=== PATIENT | male | born 1945 | race Caucasian/White ===

== ENCOUNTER → 2021-10-09 15:01 | Outpatient (BNVA) | payer MEDICARE, BC, SELFPAY | PROVIDERS: PCP Internal Medicine Medical Oncology; Visit Provider Psychiatry & Neurology Neurology | DX: G20 Parkinson's disease (principal); G47.33 Obstructive sleep apnea (adult) (pediatric) | CPT/HCPCS: 99212 ==

== ENCOUNTER → 2022-01-08 14:58 | Outpatient (BNVA) | payer MEDICARE, BC, SELFPAY | PROVIDERS: PCP Internal Medicine Medical Oncology; Visit Provider Psychiatry & Neurology Neurology | DX: G20 Parkinson's disease (principal); G47.33 Obstructive sleep apnea (adult) (pediatric) | CPT/HCPCS: 99212 ==

== ENCOUNTER → 2022-07-09 13:08 | Outpatient (BNVA) | payer MEDICARE, BC, SELFPAY | PROVIDERS: PCP Internal Medicine Medical Oncology; Visit Provider Psychiatry & Neurology Neurology | DX: G20 Parkinson's disease (principal); E11.9 Type 2 diabetes mellitus without complications; I10 Essential (primary) hypertension; Z79.4 Long term (current) use of insulin | CPT/HCPCS: 99212 ==

== ENCOUNTER 2023-01-09 13:35 | Outpatient (AMB) | payer MEDICARE, BC, SELFPAY ==
--- NOTE | 2023-01-09 13:43 | MHC.OFFVIS ---
Intake Vital Signs 01/09/23 13:56 Height 5 ft 7 in Weight 217 lb BMI 34.0 BP 128/68 Blood Pressure Location Lt brachial Position Sitting Respiration 16 Pulse 62 Pulse Source Pulse Oximeter Pulse Oximetry (%) 95 Oxygen Delivery Method Room Air Intake Visit Reasons: 6m follow up Parkinson/Confirmed Intake Note: Pt presents to office for 6 month evaluation of Parkinson's disease. He reports his symptoms have been stable since his last office visit. Occasional difficulty sleeping. He also reports some mild tremors of the right arm, but doing well overall. Allergies apple Allergy (Unknown, Verified 01/09/23 13:45) Unknown peach Allergy (Unknown, Verified 01/09/23 13:45) Unknown HPI HPI Comments History of Present Illness Details 77-yr-old male comes in for follow-up, accompanied by . ??? Parkinson's overall stable- some days are slower than others. ??? Ind with ADLs, still slow. Some difficulty cutting his food. ??? No choking. He has occasional tremors in his right hand . ??? Endorses some stiffness, especially in the morning. Legs can feel stiff and heavy. His chronic back pain is a bit better- using warm packs which is helping. ??? No orthostatic lightheadedness- may have brief mild off-balance sensation. ??? Constipation better- tries to eat fruit, vegetables, water. ??? Sleeping ok- some naps. Some daytime tiredness. ??? Mood stable. ??? No falls. ??? [facility] Medical History (Updated 01/09/23 @ 14:18 by Daniella Guerrero MD) Parkinson's disease without dyskinesia History of heart attack CVA (cerebral vascular accident) Back pain Sciatica Diabetes HTN (hypertension) Surgical History No pertinent past surgical history Family History Mother No problems noted. Father No problems noted. Social History Alcohol intake: current Alcohol intake frequency: a few times a week Patient Tobacco Use Status: Former Tobacco user Quit Date: 1991 Physical Exam Vital Signs: Last Vital Signs Pulse 62 01/09/23 13:56 Resp 16 01/09/23 13:56 BP 128/68 01/09/23 13:56 Pulse Ox 95 01/09/23 13:56 Oxygen Delivery Method Room Air 01/09/23 13:56 BMI result Body Mass Index 34.0 Neuro Other: UPDRS - 3 Speech 0-normal 1-Slight loss of expression,diction or volume 2.Monotone,slurred but understandable,moderately impaired 3.Marked impairment,difficult to understand 4.Unintelligible Facial expression 0-normal 1-Minimal hypomimia, poker face 2-Slight but definite abnormal diminution of facial expression 3-Moderate hypomimia,lips parted some of the time 4-Masked or fixed facies withs evere loss of facialexpression, lips parted more than 1/4 inch Rest Tremors( head, Upper, lower ) 0- absent 1-Slight and infrequent 2-Mild in amplitude and persistent 3-Moderate in amplitude and present most of the time 4-Marked amplitude and present most of the time Action and Postural tremors 0-none 1-Slight with action 2-Moderate with action 3-Moderate with posture and action 4-Marked , interferes with feeding Rigidity 0-Absent 1-Slight or detectable only when activated by mirror movements 2-Mild to Moderate 3-Marked, but full ROM achieved 4-Severe, range of motion achieved with difficulty Finger Taps 0-normal 1-Mild slowing an leesa reductionin amplitude 2-Moderately impaired. Early fatiguing and occasional arrests in movement 3-Severely impaired. Frequent hesitation in initiating movements or arrests in ongoing movement. 4-can barely perform the task Hand movements 0-normal 1-mild slowing and or reduction in amplitude 2-Moderately impaired.Definite and early fatiguing, may have occasional arrests in movement. 3-Severely impaired.Frequent hesitation in initiating or arrests in movement. 4-can barely perform the task Rapid Alternating Movements of Hands 0-normal 1-Mild slowing and or reduction in amplitude 2-Moderately impaired.Definite and early fatiguing. 2-Moderately impaired. Definite and early fatiguing. May have occasional arrests in movement. 3-severely impaired.Frequent hesitation in initiating movements or arrests in ongoing movement. 4-can barely perform the task Leg agility 0-normal 1-mild slowing and reduction in amplitude 2-moderately impaired.Definite and early fatiguing , may have occasional arrest in movement. 3-severely impaired.Frequent hesitation in initiating movements or arrests in ongoing movement. 4-can barely perform the task Arising from a chair 0-Normal 1-Slow or may need more than 1 attempt 2-Pushes self up from arms of seat 3-Tends to fall back and may have to try more than one time,but can get up without difficulty 4-Unable to stand without help Posture 0-normal 1-slightly stooped, could be normal for an older person 2-moderately stooped posture, definitely abnormal, can be leaning to one side 3-severely stooped posture with kyphosis, can be moderately leaning to one side 4-Marked flexion with extreme abnormal posture Gait 0-normal 1-walks slowly,may shuffle with short steps, but no festination or propulsion 2-walks with difficulty,but requires little or no assistance, may have short steps, festination or propulsion 3-severe, needs assistance 4-cannot walk even with assistance Postural stability 0-normal 1-retropulsion but recovers unaided 2-absence of postural response,will fail if not caught by the examiner 3-very unstable,tends to lose balance spontaneously 4-unable to stand without assistance Body bradykinesia and hypokinesia 0-none 1-minimal slowness,giving movement a deliberate character,could be normal for some persons.Possible reduced amplitude 2-Mild degree of slowness and poverty of movement or some reduced amplitude 3-moderate slowness,poverty or small amplitude of movement 4-marked slowness, poverty or small amplitude of movement. Assessment & Plan Assessment & Plan (1) Parkinson's disease without dyskinesia: Code(s): G20.A1 - Parkinson's disease without dyskinesia, without mention of fluctuations (2) Obstructive sleep apnea: Code(s): G47.33 - Obstructive sleep apnea (adult) (pediatric) Plan Continue sinemet 25/100 2 tabs qid Continue exercise . Declines CPAP. Coding Level of Care Code Est Pt Level 4 (54372) Diagnoses Parkinson's disease without dyskinesia G20.A1 Obstructive sleep apnea G47.33
[2023-01-09 13:56] VITALS: BP 128/68; PULSE 62; RESP 16; O2SAT 95; BMI 34.0
== END 2023-01-09 14:35 | disposition home or self-care (01) ==
PROVIDERS: Visit Provider Psychiatry & Neurology Neurology
DX: G20.A1 Parkinson's disease without dyskinesia, without mention of fluctuations (principal); G47.33 Obstructive sleep apnea (adult) (pediatric)
CPT/HCPCS: 99214

== ENCOUNTER → 2023-01-09 13:35 | Outpatient (BNVA) | payer MEDICARE, BC, SELFPAY | PROVIDERS: Visit Provider Psychiatry & Neurology Neurology | DX: G20.A1 Parkinson's disease without dyskinesia, without mention of fluctuations (principal); G47.33 Obstructive sleep apnea (adult) (pediatric) | CPT/HCPCS: 99212 ==

== ENCOUNTER 2023-06-11 11:25 | Outpatient (AMB) | payer MEDICARE, BC, SELFPAY ==
--- NOTE | 2023-06-11 11:30 | A.OFFVIS_ITS ---
Intake Vital Signs 06/11/23 11:32 Height 5 ft 7 in Weight 215 lb BMI 33.7 BP 128/74 Blood Pressure Location Rt brachial Position Sitting Respiration 17 Pulse 58 Pulse Source Pulse Oximeter Pulse Oximetry (%) 96 Oxygen Delivery Method Room Air Intake Visit Reasons: 5 mnts f/u appt LVM Intake Note: Pt presents for 6 month follow up for JOSELINE. Project Controls Specialist Required: No Allergies apple Allergy (Unknown, Verified 06/11/23 11:31) Unknown peach Allergy (Unknown, Verified 06/11/23 11:31) Unknown Medication List - Last Reconciled 06/11/23 by Daniella Guerrero MD aspirin 81 mg PO DAILY blood sugar diagnostic (FreeStyle Lite Strips) As directed carbidopa-levodopa 25-100 mg 2 tabs PO QID clopidogrel 75 mg PO DAILY fluticasone propionate 50 mcg/actuation sprays intranasal insulin aspart U-100 (Novolog FlexPen U-100 Insulin aspart) subcut insulin degludec (Tresiba FlexTouch U-100 insulin) units subcut isosorbide mononitrate ER 30 mg PO DAILY lisinopril 5 mg PO DAILY metoprolol succinate ER 25 mg PO DAILY pen needle, diabetic (BD Ultra-Fine Short Pen Needle) As directed spironolactone 12.5 mg PO DAILY torsemide 20 mg PO BID HPI HPI Comments History of Present Illness Details 77-yr-old male comes in for follow-up. ??? Parkinson's overall stable- some days are slower than others.He feels the medications make him very tired. He is not sure if it is his parkinsons meds or his diuretics. ??? Ind with ADLs, still slow. Some difficulty cutting his food.He is slower. His bedroom is upstairs, he walks up everyday holding on to the rails. He cooks somedays, makes breakfast ??? No choking. He has occasional tremors in his right hand . ??? Endorses some stiffness, especially in the morning. Legs can feel stiff and heavy. His chronic back pain is a bit better- using warm packs which is helping. ??? No orthostatic lightheadedness- may have brief mild off-balance sensation. ??? Constipation better- tries to eat fruit, vegetables, water. ??? Sleeping ok- some naps. Some daytime tiredness. ??? Mood stable. ??? No falls. ??? [facility] Medical History Parkinson's disease without dyskinesia History of heart attack CVA (cerebral vascular accident) Back pain Sciatica Diabetes HTN (hypertension) Surgical History No pertinent past surgical history Family History Mother No problems noted. Father No problems noted. Social History Alcohol intake: current Alcohol intake frequency: a few times a week Patient Tobacco Use Status: Former Tobacco user Quit Date: 1991 Physical Exam Vital Signs: Last Vital Signs Pulse 58 06/11/23 11:32 Resp 17 06/11/23 11:32 BP 128/74 06/11/23 11:32 Pulse Ox 96 06/11/23 11:32 Oxygen Delivery Method Room Air 06/11/23 11:32 BMI result Body Mass Index 33.7 Neuro Other: UPDRS - 3 Speech 0-normal 1-Slight loss of expression,diction or volume 2.Monotone,slurred but understandable,moderately impaired 3.Marked impairment,difficult to understand 4.Unintelligible Facial expression 0-normal 1-Minimal hypomimia, poker face 2-Slight but definite abnormal diminution of facial expression 3-Moderate hypomimia,lips parted some of the time 4-Masked or fixed facies withs evere loss of facialexpression, lips parted more than 1/4 inch Rest Tremors( head, Upper, lower ) 0- absent 1-Slight and infrequent 2-Mild in amplitude and persistent 3-Moderate in amplitude and present most of the time 4-Marked amplitude and present most of the time Action and Postural tremors 0-none 1-Slight with action 2-Moderate with action 3-Moderate with posture and action 4-Marked , interferes with feeding Rigidity 0-Absent 1-Slight or detectable only when activated by mirror movements 2-Mild to Moderate 3-Marked, but full ROM achieved- right UE 4-Severe, range of motion achieved with difficulty Finger Taps 0-normal 1-Mild slowing an leesa reductionin amplitude 2-Moderately impaired. Early fatiguing and occasional arrests in movement- Right UE 3-Severely impaired. Frequent hesitation in initiating movements or arrests in ongoing movement. 4-can barely perform the task Hand movements 0-normal 1-mild slowing and or reduction in amplitude 2-Moderately impaired.Definite and early fatiguing, may have occasional arrests in movement. 3-Severely impaired.Frequent hesitation in initiating or arrests in movement. 4-can barely perform the task Rapid Alternating Movements of Hands 0-normal 1-Mild slowing and or reduction in amplitude 2-Moderately impaired.Definite and early fatiguing. 2-Moderately impaired. Definite and early fatiguing. May have occasional arrests in movement. 3-severely impaired.Frequent hesitation in initiating movements or arrests in ongoing movement. 4-can barely perform the task Leg agility 0-normal 1-mild slowing and reduction in amplitude 2-moderately impaired.Definite and early fatiguing , may have occasional arrest in movement. 3-severely impaired.Frequent hesitation in initiating movements or arrests in ongoing movement. 4-can barely perform the task Arising from a chair 0-Normal 1-Slow or may need more than 1 attempt 2-Pushes self up from arms of seat 3-Tends to fall back and may have to try more than one time,but can get up without difficulty 4-Unable to stand without help Posture 0-normal 1-slightly stooped, could be normal for an older person 2-moderately stooped posture, definitely abnormal, can be leaning to one side 3-severely stooped posture with kyphosis, can be moderately leaning to one side 4-Marked flexion with extreme abnormal posture Gait 0-normal 1-walks slowly,may shuffle with short steps, but no festination or propulsion 2-walks with difficulty,but requires little or no assistance, may have short steps, festination or propulsion 3-severe, needs assistance 4-cannot walk even with assistance Postural stability 0-normal 1-retropulsion but recovers unaided 2-absence of postural response,will fail if not caught by the examiner 3-very unstable,tends to lose balance spontaneously 4-unable to stand without assistance Body bradykinesia and hypokinesia 0-none 1-minimal slowness,giving movement a deliberate character,could be normal for some persons.Possible reduced amplitude 2-Mild degree of slowness and poverty of movement or some reduced amplitude 3-moderate slowness,poverty or small amplitude of movement 4-marked slowness, poverty or small amplitude of movement. Assessment & Plan Assessment & Plan (1) Parkinson's disease without dyskinesia: Comment: mild progression Code(s): G20.A1 - Parkinson's disease without dyskinesia, without mention of fluctuations (2) Obstructive sleep apnea: Code(s): G47.33 - Obstructive sleep apnea (adult) (pediatric) Plan Continue sinemet 25/100 2 tabs qid I will trial him on rasagiline 1mg qd Continue exercise . Declines CPAP. Medications: New rasagiline (Azilect) 1 mg PO DAILY 30 tabs 6RF Coding Level of Care Code Est Pt Level 4 (17357) Diagnoses Parkinson's disease without dyskinesia G20.A1 Obstructive sleep apnea G47.33
[2023-06-11 11:32] VITALS: BP 128/74; PULSE 58; RESP 17; O2SAT 96; BMI 33.7
== END 2023-06-11 11:56 | disposition home or self-care (01) ==
PROVIDERS: PCP Internal Medicine; Visit Provider Psychiatry & Neurology Neurology
DX: G20.A1 Parkinson's disease without dyskinesia, without mention of fluctuations (principal); G47.33 Obstructive sleep apnea (adult) (pediatric)
CPT/HCPCS: 99214

== ENCOUNTER → 2023-06-11 11:28 | Outpatient (BNVA) | payer MEDICARE, BC, SELFPAY | PROVIDERS: PCP Internal Medicine; Visit Provider Psychiatry & Neurology Neurology | DX: G20.A1 Parkinson's disease without dyskinesia, without mention of fluctuations (principal); G47.33 Obstructive sleep apnea (adult) (pediatric) | CPT/HCPCS: 99212 ==

== ENCOUNTER 2024-09-16 14:33 | Outpatient (AMB) | payer MEDICARE, BC, SELFPAY ==
[2024-09-16 14:38] VITALS: BP 112/72; PULSE 63; O2SAT 99; BMI 32.1
--- NOTE | 2024-09-16 14:38 | MHC.OFFVIS ---
Vital Signs 09/16/24 14:38 Height 5 ft 7 in Weight 205 lb BMI 32.1 BP 112/72 Blood Pressure Location Rt brachial Position Sitting Pulse 63 Pulse Source Pulse Oximeter Pulse Oximetry (%) 99 Oxygen Delivery Method Room Air Intake Visit Reasons: f/u appt Intake Note: Patient presents for follow up Parkinson's disease without dyskinesia med trial rasigiline Allergies apple Allergy (Unknown, Verified 09/16/24 14:43) Unknown peach Allergy (Unknown, Verified 09/16/24 14:43) Unknown Medication List - Last Reconciled 09/16/24 by Daniella Guerrero MD aspirin 81 mg PO DAILY blood sugar diagnostic (FreeStyle Lite Strips) As directed carbidopa-levodopa 25-100 mg 2 tabs PO QID clopidogrel 75 mg PO DAILY fluticasone propionate 50 mcg/actuation sprays intranasal insulin aspart U-100 (Novolog FlexPen U-100 Insulin aspart) subcut insulin degludec (Tresiba FlexTouch U-100 insulin) units subcut isosorbide mononitrate ER 30 mg PO DAILY lisinopril 5 mg PO DAILY metoprolol succinate ER 25 mg PO DAILY pen needle, diabetic (BD Ultra-Fine Short Pen Needle) As directed rasagiline (Azilect) 1 mg PO DAILY spironolactone 12.5 mg PO DAILY torsemide 20 mg PO BID HPI Comments Details: 78-yr-old male comes in for follow-up.He is worried about his mothers condition ??? Parkinson's overall stable- some days are slower than others.He feels the medications make him very tired. He is not sure if it is his parkinsons meds or his diuretics. ??? Ind with ADLs, still slow. Some difficulty cutting his food.He is slower. His bedroom is upstairs, he walks up everyday holding on to the rails. He cooks somedays, makes breakfast ??? No choking. He has occasional tremors in his right hand . ??? Endorses some stiffness, especially in the morning. Legs can feel stiff and heavy. His chronic back pain is a bit better- using warm packs which is helping. ??? No orthostatic lightheadedness- may have brief mild off-balance sensation. ??? Constipation better- tries to eat fruit, vegetables, water. ??? Sleeping ok- some naps. Some daytime tiredness. ??? Mood stable. ??? No falls. ??? [facility] Medical History Parkinson's disease without dyskinesia History of heart attack CVA (cerebral vascular accident) Back pain Sciatica Diabetes HTN (hypertension) Surgical History No pertinent past surgical history Family History Mother No problems noted. Father No problems noted. Social History (Reviewed 09/16/24 @ 15: by Daniella Guerrero MD) Alcohol intake: current Alcohol intake frequency: a few times a week Patient Tobacco Use Status: Former Tobacco user Physical Exam Vital Signs: Last Vital Signs Pulse 63 09/16/24 14:38 BP 112/72 09/16/24 14:38 Pulse Ox 99 09/16/24 14:38 Oxygen Delivery Method Room Air 09/16/24 14:38 BMI result Body Mass Index 32.1 Neuro Other: UPDRS - 3 Speech 0-normal 1-Slight loss of expression,diction or volume 2.Monotone,slurred but understandable,moderately impaired 3.Marked impairment,difficult to understand 4.Unintelligible Facial expression 0-normal 1-Minimal hypomimia, poker face 2-Slight but definite abnormal diminution of facial expression 3-Moderate hypomimia,lips parted some of the time 4-Masked or fixed facies withs evere loss of facialexpression, lips parted more than 1/4 inch Rest Tremors( head, Upper, lower ) 0- absent 1-Slight and infrequent 2-Mild in amplitude and persistent 3-Moderate in amplitude and present most of the time 4-Marked amplitude and present most of the time Action and Postural tremors 0-none 1-Slight with action 2-Moderate with action 3-Moderate with posture and action 4-Marked , interferes with feeding Rigidity 0-Absent 1-Slight or detectable only when activated by mirror movements 2-Mild to Moderate 3-Marked, but full ROM achieved- right UE 4-Severe, range of motion achieved with difficulty Finger Taps 0-normal 1-Mild slowing an leesa reductionin amplitude 2-Moderately impaired. Early fatiguing and occasional arrests in movement- Right UE 3-Severely impaired. Frequent hesitation in initiating movements or arrests in ongoing movement. 4-can barely perform the task Hand movements 0-normal 1-mild slowing and or reduction in amplitude 2-Moderately impaired.Definite and early fatiguing, may have occasional arrests in movement. 3-Severely impaired.Frequent hesitation in initiating or arrests in movement. 4-can barely perform the task Rapid Alternating Movements of Hands 0-normal 1-Mild slowing and or reduction in amplitude 2-Moderately impaired.Definite and early fatiguing. 2-Moderately impaired. Definite and early fatiguing. May have occasional arrests in movement. 3-severely impaired.Frequent hesitation in initiating movements or arrests in ongoing movement. 4-can barely perform the task Leg agility 0-normal 1-mild slowing and reduction in amplitude 2-moderately impaired.Definite and early fatiguing , may have occasional arrest in movement. 3-severely impaired.Frequent hesitation in initiating movements or arrests in ongoing movement. 4-can barely perform the task Arising from a chair 0-Normal 1-Slow or may need more than 1 attempt 2-Pushes self up from arms of seat 3-Tends to fall back and may have to try more than one time,but can get up without difficulty 4-Unable to stand without help Posture 0-normal 1-slightly stooped, could be normal for an older person 2-moderately stooped posture, definitely abnormal, can be leaning to one side 3-severely stooped posture with kyphosis, can be moderately leaning to one side 4-Marked flexion with extreme abnormal posture Gait 0-normal 1-walks slowly,may shuffle with short steps, but no festination or propulsion 2-walks with difficulty,but requires little or no assistance, may have short steps, festination or propulsion 3-severe, needs assistance 4-cannot walk even with assistance Postural stability 0-normal 1-retropulsion but recovers unaided 2-absence of postural response,will fail if not caught by the examiner 3-very unstable,tends to lose balance spontaneously 4-unable to stand without assistance Body bradykinesia and hypokinesia 0-none 1-minimal slowness,giving movement a deliberate character,could be normal for some persons.Possible reduced amplitude 2-Mild degree of slowness and poverty of movement or some reduced amplitude 3-moderate slowness,poverty or small amplitude of movement 4-marked slowness, poverty or small amplitude of movement. Assessment & Plan Assessment & Plan (1) Parkinson's disease without dyskinesia: Comment: mild progression Code(s): G20.A1 - Parkinson's disease without dyskinesia, without mention of fluctuations Category: Medical Qualifiers: Fluctuating manifestations: without fluctuating manifestations Qualified Code(s): G20.A1 - Parkinson's disease without dyskinesia, without mention of fluctuations (2) Obstructive sleep apnea: Code(s): G47.33 - Obstructive sleep apnea (adult) (pediatric) Category: Medical Plan Continue sinemet 25/100 2 tabs qid suggested to restart rasagiline 1mg qd Continue exercise . Declines CPAP. Coding Level of Care Code Est Pt Level 4 (72367) Complex EM visit Add On G2211 Diagnoses Parkinson's disease without dyskinesia or fluctuating manifestations G20.A1 Fluctuating manifestations: without fluctuating manifestations Obstructive sleep apnea G47.33
== END 2024-09-16 15:49 | disposition home or self-care (01) ==
LOC: HO.HSMS 14:33
PROVIDERS: PCP Internal Medicine; Visit Provider Psychiatry & Neurology Neurology
DX: G20.A1 Parkinson's disease without dyskinesia, without mention of fluctuations (principal); G47.33 Obstructive sleep apnea (adult) (pediatric)
CPT/HCPCS: 99214; G2211

== ENCOUNTER → 2024-09-16 14:33 | Outpatient (BNVA) | payer MEDICARE, SELFPAY | PROVIDERS: PCP Internal Medicine; Visit Provider Psychiatry & Neurology Neurology | DX: G20.A1 Parkinson's disease without dyskinesia, without mention of fluctuations (principal); G47.33 Obstructive sleep apnea (adult) (pediatric) | CPT/HCPCS: 99212 ==

== ENCOUNTER 2025-01-13 14:33 | Outpatient (AMB) | payer MEDICARE, SELFPAY ==
--- NOTE | 2025-01-13 14:47 | A.OFFVIS_ITS ---
Vital Signs 01/13/25 14:48 Height 5 ft 7 in BP 112/62 Blood Pressure Location Rt brachial Position Sitting Pulse 48 L Pulse Source Pulse Oximeter Pulse Oximetry (%) 99 Oxygen Delivery Method Room Air Intake Visit Reasons: 4m follow up Intake Note: Follow up Parkinson's disease without dyskinesia and JOSELINE - decline CPAP Supervisor Mail Carriers Required: No Accompanied by: Son Allergies apple Allergy (Unknown, Verified 01/13/25 14:48) Unknown peach Allergy (Unknown, Verified 01/13/25 14:48) Unknown HPI Comments Details: 79-yr-old male comes in for follow-up.He had a fall and fractured his left hip( September 2024) . He had gallstones at that time and was very weak.He had surgery and is in a wheel chair now. He is also incontinent now He had severe pain , is on oxycodone .He barely walks now . He was just discharged from [facility].He walks with a walker. ???History from last visit 08/2024 - Parkinson's overall stable- some days are slower than others.He feels the medications make him very tired. He is not sure if it is his parkinsons meds or his diuretics. ??? Ind with ADLs, still slow. Some difficulty cutting his food.He is slower. His bedroom is upstairs, he walks up everyday holding on to the rails. He cooks somedays, makes breakfast ??? No choking. He has occasional tremors in his right hand . ??? Endorses some stiffness, especially in the morning. Legs can feel stiff and heavy. His chronic back pain is a bit better- using warm packs which is helping. ??? No orthostatic lightheadedness- may have brief mild off-balance sensation. ??? Constipation better- tries to eat fruit, vegetables, water. ??? Sleeping ok- some naps. Some daytime tiredness. ??? Mood stable. ??? No falls. ??? [facility] Medical History (Updated 01/13/25 @ 15:10 by Daniella Guerrero MD) Closed left femoral fracture Parkinson's disease without dyskinesia History of heart attack CVA (cerebral vascular accident) Back pain Sciatica Diabetes HTN (hypertension) Surgical History No pertinent past surgical history Family History Mother No problems noted. Father No problems noted. Social History Alcohol intake: current Alcohol intake frequency: a few times a week Patient Tobacco Use Status: Former Tobacco user Physical Exam Vital Signs: Last Vital Signs Pulse 48 L 01/13/25 14:48 BP 112/62 01/13/25 14:48 Pulse Ox 99 01/13/25 14:48 Oxygen Delivery Method Room Air 01/13/25 14:48 Neuro Other: UPDRS - 3 Speech 0-normal 1-Slight loss of expression,diction or volume 2.Monotone,slurred but understandable,moderately impaired 3.Marked impairment,difficult to understand 4.Unintelligible Facial expression 0-normal 1-Minimal hypomimia, poker face 2-Slight but definite abnormal diminution of facial expression 3-Moderate hypomimia,lips parted some of the time 4-Masked or fixed facies withs evere loss of facialexpression, lips parted more than 1/4 inch Rest Tremors( head, Upper, lower ) 0- absent 1-Slight and infrequent 2-Mild in amplitude and persistent 3-Moderate in amplitude and present most of the time 4-Marked amplitude and present most of the time Action and Postural tremors 0-none 1-Slight with action 2-Moderate with action 3-Moderate with posture and action 4-Marked , interferes with feeding Rigidity 0-Absent 1-Slight or detectable only when activated by mirror movements 2-Mild to Moderate 3-Marked, but full ROM achieved- right UE 4-Severe, range of motion achieved with difficulty Finger Taps 0-normal 1-Mild slowing an leesa reductionin amplitude 2-Moderately impaired. Early fatiguing and occasional arrests in movement- Right UE 3-Severely impaired. Frequent hesitation in initiating movements or arrests in ongoing movement. 4-can barely perform the task Hand movements 0-normal 1-mild slowing and or reduction in amplitude 2-Moderately impaired.Definite and early fatiguing, may have occasional arrests in movement. 3-Severely impaired.Frequent hesitation in initiating or arrests in movement. 4-can barely perform the task Rapid Alternating Movements of Hands 0-normal 1-Mild slowing and or reduction in amplitude 2-Moderately impaired.Definite and early fatiguing. 2-Moderately impaired. Definite and early fatiguing. May have occasional arrests in movement. 3-severely impaired.Frequent hesitation in initiating movements or arrests in ongoing movement. 4-can barely perform the task Leg agility 0-normal 1-mild slowing and reduction in amplitude 2-moderately impaired.Definite and early fatiguing , may have occasional arrest in movement. 3-severely impaired.Frequent hesitation in initiating movements or arrests in ongoing movement. 4-can barely perform the task Arising from a chair 0-Normal 1-Slow or may need more than 1 attempt 2-Pushes self up from arms of seat 3-Tends to fall back and may have to try more than one time,but can get up without difficulty 4-Unable to stand without h Assessment & Plan Assessment & Plan (1) Parkinson's disease without dyskinesia: Comment: mild progression Code(s): G20.A1 - Parkinson's disease without dyskinesia, without mention of fluctuations Category: Medical (2) Obstructive sleep apnea: Code(s): G47.33 - Obstructive sleep apnea (adult) (pediatric) Category: Medical (3) Closed left femoral fracture: Code(s): S72.92XA - Unspecified fracture of left femur, initial encounter for closed fracture Category: Medical Qualifiers: Encounter type: sequela Femur location: neck, unspecified portion Qualified Code(s): S72.002S - Fracture of unspecified part of neck of left femur, sequela Plan Continue sinemet 25/100 2 tabs qid rasagiline 1mg qd Continue exercise . Declines CPAP. Medications: Refilled rasagiline (Azilect) 1 mg PO DAILY 30 tabs 6RF Coding Level of Care Code Est Pt Level 4 (65066) Complex EM visit Add On G2211 Diagnoses Parkinson's disease without dyskinesia G20.A1 Obstructive sleep apnea G47.33 Closed fracture of neck of left femur, sequela S72.002S Encounter type: sequela Femur location: neck, unspecified portion
[2025-01-13 14:48] VITALS: BP 112/62; PULSE 48; O2SAT 99
== END 2025-01-13 15:46 | disposition home or self-care (01) ==
LOC: HO.HSMS 14:34
PROVIDERS: PCP Internal Medicine; Visit Provider Psychiatry & Neurology Neurology
DX: G20.A1 Parkinson's disease without dyskinesia, without mention of fluctuations (principal); G47.33 Obstructive sleep apnea (adult) (pediatric); S72.002S Fracture of unspecified part of neck of left femur, sequela
CPT/HCPCS: 99214; G2211

== ENCOUNTER → 2025-01-13 14:33 | Outpatient (BNVA) | payer MEDICARE, SELFPAY | PROVIDERS: PCP Internal Medicine; Visit Provider Psychiatry & Neurology Neurology | DX: G20.A1 Parkinson's disease without dyskinesia, without mention of fluctuations (principal); G47.33 Obstructive sleep apnea (adult) (pediatric); S72.002D Fracture of unspecified part of neck of left femur, subsequent encounter for closed fracture with routine healing | CPT/HCPCS: 99212 ==